=== PATIENT | male | born 1930 | race Caucasian/White ===

== ENCOUNTER → 2016-07-18 | Outpatient (CLI) | payer MEDICARE ==
[~2016-07-18] MED LIST: ACID CONTROL150 MG PO; ANORO ELLIPTA1 EACH INH; ASPIRIN LO-DOSE81 MG PO; ATIVAN 0.5MG0.5 MG PO; ATROVENT I0.5 MG/2.5 INH; CALCIUM +D & M1 EACH PO; COLACE100 MG PO; COLCRYS0.6 MG PO; COREG6.25 MG PO; CYMBALTA30 MG PO; DELTASONE20 MG PO; DEXILANT60 MG PO; DIGESTIVE ADVA1 EACH PO; DOXYCYCLINE100 MG PO; FLOMAX0.4 MG PO; HUMIBID LA (MU600 MG PO; LASIX20 MG PO; MILK OF MA400 MG/5 M PO; MIRALAX PO527 GM/BOT PO; MUCINEX DM ER1 EAC1 PO; NASONEX NASAL S17 GM NOSE; NITROSTAT0.4 MG SL; NYSTATIN100000 UNI PO; ONDANSETRON ODT4 MG SL; PRINIVIL (ZESTRI5 MG PO; PROVENTIL OR V6.7 GM INH; RANEXA ER500 MG PO; SENNA8.6 MG PO; THERA-VITE W/ B1 TAB PO; TYLENOL EXTRA500 MG PO; TYLENOL PM EX-1 EACH PO; VITAMIN D-32000 UNI1 PO
== END | disposition disaster alternative care site (69) ==
LOC: GAMB 23:34
DX: R11.2 Nausea with vomiting, unspecified (principal); Z88.8 Allergy status to other drugs, medicaments and biological substances
CPT/HCPCS: A0425; A0427; J2405

== ENCOUNTER 2016-07-19 00:01 | Emergency (ER) | payer MEDICARE ==
--- NOTE | ~2016-07-19 | ER ---
PATIENT'S NAME: NICKY [facility] AGE: 86 Y [address] ROOM: [place] [address] LOCATION: [facility] ADMIT DATE: 07/19/2016 ER/Outpatient Report DISCHARGE DATE: FAMILY PHYSICIAN: Moiz Thomason MD ATTENDING PHYSICIAN: Geoffrey Solis Admission date and time documented in medical record. I saw the patient at 0010 hours. CHIEF COMPLAINT: Nausea, vomiting, incontinence of urine, intermittent confusion, lightheaded, dizziness. HISTORY OF PRESENT ILLNESS: This patient is an 86-year-old male, who became ill Friday, was seen by his personal physician yesterday which will be . Evaluated and sent home. Tonight, he comes in with nausea and vomiting intermittently, no diarrhea. Has had some intermittent urinary incontinence. He has been intermittently confused, has had intermittent low-grade fever, mild cough that is occasionally productive. No shortness of breath, chest pain, or back pain. Does have some lower abdominal pain. No chills or sweats. No fall or trauma. HOME MEDICATIONS: See attached medication list. ALLERGIES: CONTRAST DYE, TETANUS. SOCIAL HISTORY: Nonsmoker, nondrinker. SIGNIFICANT PAST MEDICAL HISTORY: Chronic pain syndrome, atherosclerotic ischemic heart disease with coronary artery disease, hypertension, COPD, compression fractures, degenerative joint disease, degenerative osteoarthritis. OPERATIONS: Total shoulder arthroplasty, bilateral total knee arthroplasty, back surgery, four-vessel coronary artery bypass graft, herniorrhaphy x3. REVIEW OF SYSTEMS: All systems reviewed by me are negative with the exception of those discussed in the history of the present illness. PHYSICAL EXAMINATION: PATIENT'S NAME: NICKY [facility] AGE: 86 Y [address] ROOM: [place] [address] LOCATION: [facility] ADMIT DATE: 07/19/2016 ER/Outpatient Report DISCHARGE DATE: FAMILY PHYSICIAN: Moiz Thomason MD ATTENDING PHYSICIAN: Geoffrey Solis VITAL SIGNS: Temperature 99.9 tympanic, pulse 98, respirations 16, blood pressure 122/72, O2 saturation on room air was 90%. HEAD: Normocephalic. No abrasion, contusion, laceration, swelling of the scalp or face. EYES: Extraocular muscles intact. CRISTOBAL. EARS, NOSE, THROAT: Clear. Mucous membranes a little dry. NECK: No nuchal rigidity. No findings of adenopathy. SPINE: Negative. LUNGS: Clear. No rales, rhonchi, or wheezes. HEART: Regular. Pulses palpable. ABDOMEN: Soft, nondistended, nontender. Good bowel tones. No organomegaly or abnormal mass palpable. No CVA tenderness. EXTREMITIES: Without peripheral edema, cyanosis, or deformity. NEURO: Cranial nerves intact. No lateralizing sign. The patient is awake, cooperative. Motor and sensory intact. The patient is oriented. Answers questions appropriately. Conversation is appropriate. SKIN: Clear. No skin eruptions or rash. LABORATORY DATA AND X-RAYS: EKG showed no acute ST elevation, ischemic change, or arrhythmia. Had some old inferior changes. Chest x-ray showed no acute infiltrate or changes. We will review x-ray with the radiologist. LABORATORY DATA: White count of 7500, 64 segs, 16 lymphs, 16 monos, 4 eos, 1 baso. Hemoglobin is 12.1, hematocrit 37.3, platelet count was 173,000. Sedimentation rate was 44. Pro-time is 10.2 with an INR of 1.0. Procalcitonin was less than 0.05. Urine showed 0-2 whites, negative reds, 0-2 epithelial cells, negative bacteria per high-powered field, negative nitrites on dipstick. Culture: Pending. Did do 2 blood cultures; results pending. Lactate was 1.6. CMS was normal, except for an elevated glucose of 128, elevated creatinine of 1.4, low GFR of 48. Amylase and lipase were normal. CPK was 34. [id number] cardiac enzymes were normal. CRP was 0.96, proBNP was 208. Did give the patient 1 liter of normal saline IV in the emergency room and Zofran 4 mg IV in the emergency room. IMPRESSION: Viral illness with nausea, vomiting, and intermittent incontinence of urine. Intermittent confusion. Intermittent dizziness. PLAN: Hydrate the patient. Dismissed the patient home. Observation. Activity: As tolerated. Continue present home medications and care. Clear liquid diet for 24 hours and advance diet as tolerated. The patient is to follow up with his PATIENT'S NAME: CHATA SAUNDERS [facility] AGE: 86 Y [address] ROOM: [place], [place] [address] LOCATION: [facility] ADMIT DATE: 07/19/2016 ER/Outpatient Report DISCHARGE DATE: FAMILY PHYSICIAN: Moiz Thomason MD ATTENDING PHYSICIAN: Geoffrey Solis personal physician tomorrow as scheduled. Discussion ensued with the patient and his daughter in regard to my findings and recommendations, they understand. Did send home a script for Zofran ODT 1 sublingual every 4 to 6 hours as needed for nausea and vomiting. MD GRACE PARNELL/modl /[id number] d: 07/19/16 0334 t: 07/19/16 181, OUTPATIENT REPORT
[2016-07-19 00:31] LABS: BILIRUBIN URINE NEGATIVE (NEGATIVE); BLOOD URINE NEGATIVE /UL (NEGATIVE); GLUCOSE URINE NEGATIVE (NEGATIVE); KETONE URINE 5 mg/dL (NEGATIVE); LEUKOCYTES URINE 25 /UL (NEGATIVE); NITRITE URINE NEGATIVE (NEGATIVE); PROTEIN URINE 15 mg/dL (NEGATIVE); UROBILINOGEN URINE NORMAL (NORMAL)
[2016-07-19 00:32] LABS: COLOR URINE YELLOW (YELLOW); TURBIDITY URINE CLEAR (CLEAR)
[2016-07-19 00:39] LABS: BASOPHIL # 0.1 K/uL (0.0-0.2); BASOPHIL % 0.7 %; EOSINOPHIL # 0.3 K/uL (0.0-0.5); HEMATOCRIT 37.3 % (33.0-50.0); HEMOGLOBIN 12.1 g/dL (11.0-16.0); IMMATURE GRANULOCYTE % 0.5 %; LYMPHOCYTE # 1.2 K/uL (0.8-4.0); LYMPHOCYTE % 15.5 %; MCH 31.6 pg (27.0-34.0); MCHC 32.4 gm/dL (32.0-36.5); MCV 97.4 fl (83.0-98.0); MONOCYTE # 1.2 K/uL (0.0-1.0); MONOCYTE % 15.8 %; MPV 9.3 fl (9.4-12.4); NEUTROPHIL # (ANC) 4.8 K/uL (1.4-9.0); NEUTROPHIL % 63.5 %; NRBC % 0 /100WBC (0-0.00); PLATELET COUNT 173 K/uL (150-450); RBC 3.83 M/uL (3.50-5.50); RDW-CV 14.3 % (11.9-14.6); WBC 7.5 K/uL (4.0-11.0)
[2016-07-19 00:42] LABS: BACTERIA URINE NEGATIVE (NEGATIVE); EPITHELIAL URINE 0-2 #/HPF (NEGATIVE); RBC URINE NEGATIVE #/HPF (NEGATIVE); WBC URINE 0-2 #/HPF (NEGATIVE)
[2016-07-19 00:48] LABS: PROTIME 10.2 SECONDS (9.6-11.1)
[2016-07-19 00:58] LABS: ALBUMIN 3.3 gm/dL (3.5-5.0); ALK PHOS 79 IU/L (33-138); ALT 19 IU/L (12-78); ANION GAP 13.9 (10.0-19.0); AST 16 IU/L (10-40); BLOOD UREA NITROGEN 21 mg/dL (6-24); CALCIUM 9.1 mg/dL (8.5-10.5); CHLORIDE 107 mMol/L (96-110); CO2 25 mMol/L (22-32); CPK 34 IU/L (35-332); CREATININE 1.4 mg/dL (0.6-1.3); ESTIMATED GFR (MDRD EQUATION) 48; POTASSIUM 3.9 mMol/L (3.7-5.1); SODIUM 142 mMol/L (135-145); TOTAL BILIRUBIN 0.3 mg/dL (0.0-1.5); TOTAL PROTEIN 6.9 g/dL (6.0-8.4)
== END 2016-07-19 02:12 | disposition disaster alternative care site (69) ==
LOC: GMED 00:01
PROVIDERS: Emergency Medicine
PROC: 0T9B70Z Drainage of Bladder with Drainage Device, Via Natural or Artificial Opening (ICD-10-PCS; principal; 2016-07-19)
DX: B34.9 Viral infection, unspecified (principal); R32 Unspecified urinary incontinence; R42 Dizziness and giddiness; R41.0 Disorientation, unspecified
CPT/HCPCS: J2405; J7030

== ENCOUNTER 2016-07-23 14:12 | Inpatient (IN) | payer MEDICARE ==
[~2016-07-23] VITALS: Ht 170.2 cm; Wt 80.7 kg
--- NOTE | ~2016-07-23 | ER ---
PATIENT'S NAME: NICKY [facility] AGE: 86 Y [address] ROOM: [place] [address] LOCATION: [facility] ADMIT DATE: 07/23/2016 ER/Outpatient Report DISCHARGE DATE: FAMILY PHYSICIAN: LION GALINDO MD ATTENDING PHYSICIAN: SILVANO BRITT V Time of Arrival: 1412. Time Seen: 1414. IDENTIFICATION: 86-year-old male. CHIEF COMPLAINT: Probable pneumonia. HISTORY OF PRESENT ILLNESS: The patient has been short of breath and seen in the clinic a couple of different times, treated with prednisone and antibiotics, seem to get a little bit better, but then got worse according to his daughter. His has been in the hospital here. He sees Dr. Yu, normally. He has had "chills" and felt clammy and nonproductive cough. He also has been seen here in the emergency room. PAST MEDICAL HISTORY: ALLERGIES: TO TETANUS AND CONTRAST. CURRENT MEDICATIONS: 1. Calcium chews 500 mg with vitamin D and K. 2. 6 mg. 3. Dexilant 60 mg. 4. Carvedilol 6.125 mg b.i.d. 5. Lisinopril 5 mg daily. 6. Ranexa 500 mg b.i.d. 7. Men's multivitamin daily. 8. Vitamin D 2000 international units daily. 9. TruBiotics daily. 10. Acetaminophen daily. 11. MiraLAX 1 daily. 12. Ranitidine 150 mg at bedtime. 13. Flomax 0.4 mg at bedtime. 14. Duloxetine 30 mg daily. 15. Aspirin 81 mg daily. 16. Stool softener 100 mg daily. PATIENT'S NAME: NICKY [facility] AGE: 86 Y [address] ROOM: [place] [address] LOCATION: [facility] ADMIT DATE: 07/23/2016 ER/Outpatient Report DISCHARGE DATE: FAMILY PHYSICIAN: LION GALINDO MD ATTENDING PHYSICIAN: SILVANO BRITT V 17. Tylenol PM two 500 mg tablets at bedtime. 18. Mometasone 50 mcg spray. 19. Mucinex DM. 20. Clindamycin. 21. Prednisone were prescribed in the clinic this week according to his daughter. MEDICAL PROBLEMS: COPD, urinary retention, constipation, coronary artery disease, chronic pain syndrome, compression fracture, degenerative joint disease, degenerative arthritis. PRIOR SURGERY: Total shoulder arthroplasty, bilateral total knee arthroplasty, back surgery, four-vessel CABG, herniorrhaphy x3. SOCIAL HISTORY: The patient lives at home normally with his and daughter. REVIEW OF SYSTEMS: All systems reviewed and negative other than what is noted in the HPI. PHYSICAL EXAMINATION: VITAL SIGNS: Pulse 69, respirations 20, temperature 96.6, blood pressure 151/80, sats initially 92% on room air, but did drop to 87% requiring O2 at 3 L per nasal cannula to maintain saturations greater than 90%. GENERAL: An 86-year-old male in no acute distress. HEENT: Head: Normocephalic, atraumatic. Ears: TMs translucent to both ears. Nose: Mucosa pink, no lesions. Mouth: No lesions. Pharynx benign. NECK: Supple. No lymphadenopathy. LUNGS: Diminished in the bases. HEART: Regular rate and rhythm. ABDOMEN: Soft, nondistended, nontender. SKIN: [place], warm, and dry. No lesions or rashes noted. NEUROLOGIC: No palpable masses. SKIN: [place], warm, and dry. No lesions or rashes noted. EXTREMITIES: Trace of edema. No calf tenderness. DIAGNOSTIC DATA: Two-view chest x-ray; suboptimal inspiration, cannot exclude increased pulmonary vascularity or infiltrate. Two-view abdomen; moderate amount of stool, but no free air, no evidence of obstruction. V/Q scan pending. LABORATORY DATA: Sodium 141, potassium 4.5, chloride 104, CO2 of 29, BUN 31, creatinine PATIENT'S NAME: CHATA SAUNDERS [facility] AGE: 86 Y [address] ROOM: [place] [address] LOCATION: [facility] ADMIT DATE: 07/23/2016 ER/Outpatient Report DISCHARGE DATE: FAMILY PHYSICIAN: LION GALINDO MD ATTENDING PHYSICIAN: SILVANO BRITT V elevated at 1.5 but is stable, blood sugar 128, liver enzymes normal. GFR 44, magnesium 2.9, CPK 26, CK-MB less than 0.5. Troponin I less than 0.040. Lactate elevated at 2.3. Procalcitonin less than 0.05. UA; 0-2 white cells, 0-2 red cells, 2-5 epithelial cells. Urine culture and sensitivity are pending. Hemoglobin 12.1, hematocrit 38.2, platelets 204, white count 10.3, normal differential. D-dimer elevated at 1.09. INR 1.0 and again V/Q scan is pending. ProBNP 328. EKG; sinus rhythm at 71 beats per minute. No acute ST elevation. Nonspecific ST-T wave changes. No significant change when compared to prior EKG 07/09/2013. IMPRESSION: 1. Possible pneumonia. 2. Chronic obstructive pulmonary disease exacerbation. PLAN: Levaquin 500 mg p.o. daily. Solu-Medrol IV q.8 hours. DuoNeb q.6 hours. O2 per nasal cannula to maintain saturations greater than 90%. V/Q scan pending. The patient is a DNR and Dr. Britt evaluated the patient in the emergency room. Please refer to his H and P as well. CHERYL RONQUILLO MD CAR/modl /[id number] d: 07/23/16 2309 t: 07/30/16 1412, OUTPATIENT REPORT
--- NOTE | ~2016-07-23 | HP ---
PATIENT'S NAME: CHATA SAUNDERS [facility] AGE: 86 Y [address] ROOM: [place] [id number] LOCATION: [facility]U ADMIT DATE: 07/23/2016 History & Physical DISCHARGE DATE: FAMILY PHYSICIAN: LION GALINDO MD ATTENDING PHYSICIAN: SILVANO BRITT V DATE OF SERVICE: CHIEF COMPLAINT: As provided by the caregivers is increased shortness of breath, saturations in high 80s at home, and decreased appetite. HISTORY OF PRESENT ILLNESS: The patient is an 86-year-old male with past medical history further detailed below, most significant for a very recent diagnosis of COPD at an outside facility. He has been experiencing increased dyspnea as well as decreased oral intake and generalized lack of energy at home. He was treated by his PMD with clindamycin and oral prednisone. He did not significantly improve, and daughter, who is the caregiver, felt that the patient was declining recently with decreased energy level, lower saturations than normal, and decreased oral intake. The patient himself does not volunteer any significant complaints including none of chest pain. In the ER, the patient was found to be very mildly hypoxic but aside from that, he also had some elevated creatinine from his baseline. Of note, his is also in the hospital with a complex medical condition, which details I do not have, but the daughter feels that the fact that she is taken to the hospital probably is contributing to his symptoms. REVIEW OF SYSTEMS: All systems have been reviewed and are negative aside from pertinent positives mentioned above. PAST MEDICAL HISTORY: As gathered from the daughter is that of: 1. Coronary artery disease, status post CABG. 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 2. Questionable benign prostatic hyperplasia. 3. Mild dementia. 4. COPD. 5. History of a compression spinal fracture. CURRENT MEDICATIONS: PATIENT'S NAME: CHATA SAUNDERS [facility] AGE: 86 Y [address] ROOM: [place] [address] LOCATION: [facility]U ADMIT DATE: 07/23/2016 History & Physical DISCHARGE DATE: FAMILY PHYSICIAN: LION GALINDO MD ATTENDING PHYSICIAN: SILVANO BRITT V 1. Calcium. 2. Colcrys. 3. Dexilant. 4. Coreg. 5. Lisinopril. 6. Ranexa. 7. Vitamins. 8. Vitamin D. 9. Probiotics. 10. Acetaminophen as needed. 11. MiraLAX. 12. Ranitidine. 13. Flomax. 14. Duloxetine. 15. Aspirin. 16. Stool softeners. 17. Tylenol. 18. Mometasone. 19. Mucinex. 20. hydrocodone/APAP as needed. FAMILY HISTORY: Reviewed and noncontributory due to known advanced age and known underlying medical problems. SOCIAL HISTORY: Significant for no history of tobacco exposure, but history of inhaling some sort of acid, which is felt to be the underlying cause for his COPD. PHYSICAL EXAMINATION: VITAL SIGNS: Blood pressure 151/80, temperature 96.6, saturating 92% on 2 L nasal cannula, pulse is 69. GENERAL: Appears as a chronically ill, elderly male, in no acute distress. NEUROLOGIC: Nonfocal. EYE: Shows sunken eyes with extraocular muscles intact. ENT: Reveals crowding of the airway but no pharyngeal erythema or edema. There is no stridor. LYMPHATIC: Shows no cervical lymphadenopathy. LUNGS: Exam is significant for significant crackles as well as expiratory wheezes in the upper airways. HEART: Reveals regular rate and rhythm without appreciable murmurs, gallops, or rubs. GI: Abdomen is soft, nontender, nondistended. : No costovertebral angle tenderness. VASCULAR: 2+ pedal pulses. No cyanosis, clubbing, or edema. PATIENT'S NAME: CHATA SAUNDERS [facility] AGE: 86 Y [address] ROOM: [id number] [place] [id number] [facility]: [facility] ADMIT DATE: 07/23/2016 History & Physical DISCHARGE DATE: FAMILY PHYSICIAN: LION GALINDO MD ATTENDING PHYSICIAN: SILVANO BRITT V MUSCULOSKELETAL: Exam is unremarkable. SKIN: Warm and dry. PSYCHIATRIC: Reveals slightly diminished cognition, but preserved affect and depressed mood. LABORATORY RESULTS: Significant for an unremarkable UA, negative procalcitonin, slightly elevated D-dimer, unremarkable CBC, a negative set of cardiac enzymes. Creatinine of 1.5, BUN of 31, slightly above his baseline, and a lactate of 2.3. EKG shows sinus rhythm with low voltage. IMAGING STUDIES: Chest x-ray reveals crowding of the lung markings with poor inspiratory effort and questionable infiltrate in the left base. Plain films of the abdomen reveals likely constipation. ASSESSMENT AND PLAN: This is an 86-year-old male, who will be admitted with: 1. Failure to thrive. We will hydrate the patient and provide him with physical/occupational therapy. 2. Acute hypoxic respiratory failure. Given the findings on his chest x- ray, I think it is worthwhile to do a high-resolution noncontrast CAT scan of his lungs to see if he has an underlying lung process. We will also treat him for chronic obstructive pulmonary disease exacerbation/community-acquired pneumonia with Levaquin, nebulizers, and gentle doses of steroids. We will add a probiotic. 3. Constipation. We will treat his constipation with a bowel regimen. 4. Coronary artery disease. Continue on his current regimen. 5. Hypoxic respiratory failure. A V/Q scan has been ordered. 6. Goals of care. I did discuss his advance directives with the patient and daughter, they agreed that he should be DNR given advanced age and accumulating medical problems, though I did not discuss intubation at this point. Additional management depend on clinical course. Time dedicated to the patient's encounter is 35 minutes. MD KIERA AGOSTO/doris /[id number] D: T: [id number] HISTORY & PHYSICAL
--- NOTE | ~2016-07-23 | DS ---
PATIENT'S NAME: CHATA SAUNDERS [facility] AGE: 86 Y [address] ROOM: [place] [address] LOCATION: GPCU ADMIT DATE: 07/23/2016 Discharge Summary DISCHARGE DATE: 07/26/2016 FAMILY PHYSICIAN: Moiz Thomason MD ATTENDING PHYSICIAN: Theodore Landaverde V PRIMARY DIAGNOSES: 1. Acute on chronic hypoxic respiratory failure. 2. Chronic bronchitis. 3. Chronic obstructive pulmonary disease with exacerbation. 4. Adult failure to thrive. 5. Gait instability with frequent falls. 6. Chronic low back pain. 7. Osteoarthritis of the spine. 8. Constipation. 9. Dementia without agitation. 10. Coronary artery disease. 11. Benign prostatic hypertrophy. OPERATIONS OR PROCEDURES: V/Q scan, CT scan of the chest were obtained on 07/23/2016, negative for PE demonstrating findings consistent with chronic bronchitis. HISTORY OF PRESENTING ILLNESS AND REASON FOR ADMISSION: Please refer to the H and P dictated on 07/23/2016. HOSPITAL COURSE: The patient was admitted to the hospital as noted above with a presumptive diagnosis of acute hypoxic respiratory failure. There was some concern for PE, but imaging studies ruled this out. CT scan did confirm the presence of chronic lung findings including evidence for chronic bronchitis and chronic obstructive pulmonary disease. He received broad-spectrum antibiotic therapy and careful IV steroid management. His clinical condition was stable. He was slow to improve. He was felt to be chronically deconditioned and adult failure to thrive due to multifactorial etiologies were identified. He was found to have a green hairy tongue. It was thought this was probably related to chronic inhaler therapy with Anoro, antacid therapy with Zantac, and periodic antibiotic treatment. He was recommended to use Peridex rinse for this at least initially. He really was not that symptomatic with it. He did receive physical therapy, occupational therapy. Oxygen was weaned, but PATIENT'S NAME: CHATA SAUNDERS [facility] AGE: 86 Y [address] ROOM: [place] [address] LOCATION: GPCU ADMIT DATE: 07/23/2016 Discharge Summary DISCHARGE DATE: 07/26/2016 FAMILY PHYSICIAN: Moiz Thomason MD ATTENDING PHYSICIAN: Theodore Landaverde V he was not able to be weaned off. Eventually, after I had discussion with the family, it was decided to look for fdc care. We were able to find placement for him on the transitional care unit where he could continue to receive physical therapy, occupational therapy, as well as ongoing antibiotic therapy and titration of the respiratory treatments. DISCHARGE INSTRUCTIONS: Diet as tolerated. Activity as tolerated. Oxygen 1 liter per nasal cannula continuously. MEDICATIONS: 1. Acetaminophen 500 mg p.o. q.h.s. 2. Benadryl 25 mg p.o. q.h.s. 3. Acetaminophen 1000 mg p.o. q.a.m. 4. Aspirin 81 mg p.o. daily. 5. Calcium with vitamin D 500 mg p.o. daily. 6. Carvedilol 6.25 p.o. b.i.d. 7. Peridex rinse 10-15 mL p.o. q.i.d. p.r.n. 8. Vitamin D 2000 units p.o. daily. 9. Colchicine 0.6 mg p.o. daily. 10. Colace 100 mg p.o. t.i.d. 11. Cymbalta 60 mg p.o. q.h.s. 12. Lovenox 40 mg subcu daily. 13. Flonase nasal spray 2 sprays each nostril at h.s. 14. Guaifenesin 600 mg p.o. b.i.d. 15. Lactinex 1 tablet p.o. daily. 16. Levofloxacin 500 mg p.o. daily. 17. Multivitamin daily. 18. Protonix 40 mg p.o. daily. 19. MiraLax 17 g p.o. daily. 20. Prednisone 5 mg p.o. b.i.d. x3 days, then 5 mg p.o. daily x3 days, then stop. 21. Ranexa ER 500 mg p.o. b.i.d. 22. Florastor 250 mg p.o. b.i.d. 23. Flomax 0.4 mg p.o. b.i.d. 24. Anoro Ellipta inhaler 1 puff daily. 25. Albuterol and ipratropium per nebulizer q.6 hours p.r.n. 26. Dulcolax 10 mg p.r. daily p.r.n. 27. Lorazepam 0.5 mg p.o. q.h.s. 28. Milk of magnesia 30 mL p.o. daily p.r.n. 29. Nitroglycerin p.r.n. FOLLOWUP: He will have followup on the transitional care unit by the Hospitalist Team and eventual followup with his primary care physician. CONDITION ON DISCHARGE: Fair. PATIENT'S NAME: CHATA SAUNDERS [facility] AGE: 86 Y [address] ROOM: [address] [address] LOCATION: GPCU ADMIT DATE: 07/23/2016 Discharge Summary DISCHARGE DATE: 07/26/2016 FAMILY PHYSICIAN: Moiz Thomason MD ATTENDING PHYSICIAN: Theodore Landaverde V Total time spent on discharge process 45 minutes. MD AYSE RIVER/modl /[id number] d: 07/27/16 0411 t: 08/07/16 2144, DISCHARGE SUMMARY
[2016-07-23 14:59] LABS: BASOPHIL % 0.1 %; HEMATOCRIT 38.2 % (33.0-50.0); HEMOGLOBIN 12.1 g/dL (11.0-16.0); IMMATURE GRANULOCYTE # 0.2 K/uL (0.0-0.3); IMMATURE GRANULOCYTE % 2.1 %; LYMPHOCYTE # 1.4 K/uL (0.8-4.0); LYMPHOCYTE % 13.7 %; MCH 31.4 pg (27.0-34.0); MCHC 31.7 gm/dL (32.0-36.5); MCV 99.2 fl (83.0-98.0); MONOCYTE % 9.3 %; MPV 9.9 fl (9.4-12.4); NEUTROPHIL # (ANC) 7.7 K/uL (1.4-9.0); NEUTROPHIL % 74.8 %; NRBC % 0 /100WBC (0-0.00); PLATELET COUNT 204 K/uL (150-450); RBC 3.85 M/uL (3.50-5.50); RDW-CV 14.4 % (11.9-14.6); WBC 10.3 K/uL (4.0-11.0)
[2016-07-23 15:11] LABS: PTT 25 SECONDS (25-32)
[2016-07-23 15:17] LABS: BLOOD URINE NEGATIVE /UL (NEGATIVE); GLUCOSE URINE NEGATIVE (NEGATIVE); KETONE URINE NEGATIVE (NEGATIVE); LEUKOCYTES URINE 25 /UL (NEGATIVE); NITRITE URINE NEGATIVE (NEGATIVE); PROTEIN URINE 30 mg/dL (NEGATIVE); SPEC GRAVITY URINE 1.015 (1.003-1.035); UROBILINOGEN URINE 1 mg/dL (NORMAL)
[2016-07-23 15:19] LABS: ALBUMIN 3.2 gm/dL (3.5-5.0); ALK PHOS 86 IU/L (33-138); ALT 27 IU/L (12-78); ANION GAP 12.5 (10.0-19.0); AST 23 IU/L (10-40); BLOOD UREA NITROGEN 31 mg/dL (6-24); CALCIUM 8.2 mg/dL (8.5-10.5); CHLORIDE 104 mMol/L (96-110); CO2 29 mMol/L (22-32); CPK 26 IU/L (35-332); CREATININE 1.5 mg/dL (0.6-1.3); ESTIMATED GFR (MDRD EQUATION) 44; POTASSIUM 4.5 mMol/L (3.7-5.1); SODIUM 141 mMol/L (135-145); TOTAL BILIRUBIN 0.3 mg/dL (0.0-1.5); TOTAL PROTEIN 6.8 g/dL (6.0-8.4)
[2016-07-23 15:20] LABS: MAGNESIUM 2.9 mg/dL (1.3-2.6)
[2016-07-23 15:30] LABS: COLOR URINE YELLOW (YELLOW); TURBIDITY URINE 1+ (CLEAR)
[2016-07-23 15:32] LABS: BACTERIA URINE FEW (NEGATIVE); CRYSTALS URINE TRIPLE PHOSPHATE (NEGATIVE); MUCUS URINE 1+ (NEGATIVE); RBC URINE 0-2 #/HPF (NEGATIVE); WBC URINE 0-2 #/HPF (NEGATIVE)
[2016-07-23] MEDS ORDERED: COLACE100 MG PO (18:20)
[2016-07-23] MEDS ORDERED: ASPIRIN LO-DOSE81 MG PO (18:20)
[2016-07-23] MEDS ORDERED: DOXYCYCLINE100 MG PO (18:21)
[2016-07-23] MEDS ORDERED: NASONEX NASAL S17 GM NOSE (18:21)
[2016-07-23] MEDS ORDERED: ATIVAN 0.5MG0.5 MG PO (18:22)
[2016-07-23] MEDS ORDERED: DELTASONE20 MG PO (18:23)
[2016-07-23] MEDS ORDERED: ONDANSETRON ODT4 MG SL (18:23)
[2016-07-23] MEDS ORDERED: COREG6.25 MG PO (18:24)
[2016-07-23] MEDS ORDERED: FLOMAX0.4 MG PO (18:24)
[2016-07-23] MEDS ORDERED: PRINIVIL (ZESTRI5 MG PO (18:24)
[2016-07-23] MEDS ORDERED: CYMBALTA30 MG PO (18:25)
[2016-07-23] MEDS ORDERED: RANEXA ER500 MG PO (18:25)
[2016-07-23] MEDS ORDERED: DEXILANT60 MG PO (18:25)
[2016-07-23] MEDS ORDERED: ACID CONTROL150 MG PO (18:25)
[2016-07-23] MEDS ORDERED: CALCIUM +D & M1 EACH PO (18:26)
[2016-07-23] MEDS ORDERED: NITROSTAT0.4 MG SL (18:26)
[2016-07-23] MEDS ORDERED: THERA-VITE W/ B1 TAB PO (18:27)
[2016-07-23] MEDS ORDERED: VITAMIN D-32000 UNI1 PO (18:27)
[2016-07-23] MEDS ORDERED: DIGESTIVE ADVA1 EACH PO (18:28)
[2016-07-23] MEDS ORDERED: MIRALAX PO527 GM/BOT PO (18:28)
[2016-07-23] MEDS ORDERED: TYLENOL EXTRA500 MG PO (18:28)
[2016-07-23] MEDS ORDERED: TYLENOL PM EX-1 EACH PO (18:29)
[2016-07-23] MEDS ORDERED: MILK OF MA400 MG/5 M PO (18:29)
[2016-07-23] MEDS ORDERED: ANORO ELLIPTA1 EACH INH (18:29)
[2016-07-23] MEDS ORDERED: MUCINEX DM ER1 EAC1 PO (18:30)
[2016-07-23] MEDS ORDERED: COLCRYS0.6 MG PO (18:30)
--- NOTE | 2016-07-23 18:37 | NUR ---
patient is 86 yo male admitted this evening from ER. has history of chromic inhalation injury in about 1983. used to work at [employer]. he was forced to retire at that time, due to the injury. he went to [place] for a year 3 times a week for chelation treatments which the daughter believes saved his life. IV is infusing in left wrist without erythema or edema noted at site. Education is given as documented. patient denies questions. Pneumatics are on, fall and allergy bracelets on. patient renetta well. call light is within reach. patient denies needs. is very pleasant. report is given to GARRETT Mendoza.
--- NOTE | 2016-07-23 19:07 | NUR ---
Significant Event:A/O X 2, disoriented to time. Ambulates with 1 assist is weak all over and suffers with chronic back pain, is not experiencing pain on admission. Dyspnea with talking. Remains 95% on room air at rest and desats to 89% with talking, so put back on to 1L/NC as on admission to the room. Fair appetite and needs assist to eat, teeth are chipped and rotting. Voids in urinal, needs assist to stand and has some delay. Wears incontience garment for dribbling. BM smear today. Daughter is supportive at the bedside. Follow up:Results of VQ scan, CT without contrast.
--- NOTE | 2016-07-24 03:45 | NUR ---
Significant Event: A/0X3. RESTED IN BED ALL OF SHIFT. TURNS SELF. AFEBRILE. VSS ON 1L. SCHEDULED EXTRA STRENGTH TYLENOL PM GIVEN AT HS NO C/O OF PAIN. PATIENT IS RESTING COMFORTABLY IN BED. IV TO L) FA SL. VQ SCAN CAME BACK -. VOIDED 675 MLS PER THE URINAL. NO BM THIS SHIFT. Follow up: CONTINUE [facility] PLAN OF CARE.
[2016-07-24 04:49] LABS: BICARBONATE 29.2 mmol/L (18.0-23.0); PCO2 44 mmHg (35-45); PO2 66 mmHg (80-90)
[2016-07-24 06:08] LABS: BASOPHIL % 0.1 %; HEMATOCRIT 36.7 % (33.0-50.0); HEMOGLOBIN 11.7 g/dL (11.0-16.0); IMMATURE GRANULOCYTE # 0.3 K/uL (0.0-0.3); IMMATURE GRANULOCYTE % 3.9 %; LYMPHOCYTE # 1.3 K/uL (0.8-4.0); LYMPHOCYTE % 16.3 %; MCH 31.2 pg (27.0-34.0); MCHC 31.9 gm/dL (32.0-36.5); MCV 97.9 fl (83.0-98.0); MONOCYTE # 0.6 K/uL (0.0-1.0); MONOCYTE % 7.5 %; MPV 10.2 fl (9.4-12.4); NEUTROPHIL # (ANC) 5.9 K/uL (1.4-9.0); NEUTROPHIL % 72.2 %; NRBC % 0 /100WBC (0-0.00); PLATELET COUNT 211 K/uL (150-450); RBC 3.75 M/uL (3.50-5.50); RDW-CV 14.4 % (11.9-14.6); WBC 8.2 K/uL (4.0-11.0)
[2016-07-24 06:15] LABS: ANION GAP 11.9 (10.0-19.0); BLOOD UREA NITROGEN 27 mg/dL (6-24); CALCIUM 8.2 mg/dL (8.5-10.5); CHLORIDE 103 mMol/L (96-110); CO2 28 mMol/L (22-32); CREATININE 1.1 mg/dL (0.6-1.3); PHOSPHORUS 3.1 mg/dL (2.5-4.9); POTASSIUM 4.9 mMol/L (3.7-5.1); SODIUM 138 mMol/L (135-145)
[2016-07-24 06:17] LABS: ESTIMATED GFR (MDRD EQUATION) > 60; MAGNESIUM 2.7 mg/dL (1.3-2.6)
--- NOTE | 2016-07-24 14:31 | NUR ---
Introduced self and role of care management to patient and his daughter. He lives in [place] with his and daughter Chantelle. His daughter states that he is able to do some of his own ADL's. His daughter Chantelle assists as needed. He does use a walker at home. He is currently getting PT and ST at [facility]. His daughter that is in the room asked that I call and speak with Chantelle as this is who takes care of her parents. I called and spoke with Chantelle. She inquired about changing his therapies to where someone comes to their home because it is getting to be to taxing on him to get out to all the appointments. I explained that we could do HHC. She agreed. I offered her the choice between [facility] or [facility]. She chose [facility]. I called the [place] office and faxed referral information. Vic denies any other needs at this time. Will continue to follow.
--- NOTE | 2016-07-24 14:44 | NUR ---
Significant Event: A/O, forgetful. Denies pain. Up with 1 assist and walker. Weaned to RA this afternoon, 94% on RA. Follow up: possible dismissal tomorrow.
--- NOTE | 2016-07-25 04:47 | NUR ---
Significant Event: A/0 X 3 BUT FORGETFULL AT TIMES. AMBULTES 1 ASSSIT WITH WALKER GAIT BELT. ALL VSS. WAS UNABEL TO WEEN TO ROOM AIR. 1L PUT SATS AROUND 91-92, RA DOWN 85-88. LUNGS REMAIN COARSE. 0.5 MG ATIVAN GIVEN AT 2240 FOR AGITATION. DENIED PAIN. Follow up: POSSIBLE D/C TODAY WITH HOME HEALTH.
[2016-07-25 04:49] LABS: HEMATOCRIT 36.6 % (33.0-50.0); HEMOGLOBIN 12.2 g/dL (11.0-16.0); MCH 31.7 pg (27.0-34.0); MCHC 33.3 gm/dL (32.0-36.5); MCV 95.1 fl (83.0-98.0); MPV 10.1 fl (9.4-12.4); PLATELET COUNT 223 K/uL (150-450); RBC 3.85 M/uL (3.50-5.50); RDW-CV 14.2 % (11.9-14.6); WBC 10.4 K/uL (4.0-11.0)
[2016-07-25 05:10] LABS: ALBUMIN 3.1 gm/dL (3.5-5.0); ALK PHOS 72 IU/L (33-138); ALT 26 IU/L (12-78); ANION GAP 13.4 (10.0-19.0); AST 24 IU/L (10-40); BLOOD UREA NITROGEN 28 mg/dL (6-24); CALCIUM 8.9 mg/dL (8.5-10.5); CHLORIDE 100 mMol/L (96-110); CO2 28 mMol/L (22-32); CREATININE 1.3 mg/dL (0.6-1.3); ESTIMATED GFR (MDRD EQUATION) 52; MAGNESIUM 2.3 mg/dL (1.3-2.6); POTASSIUM 4.4 mMol/L (3.7-5.1); SODIUM 137 mMol/L (135-145); TOTAL PROTEIN 6.8 g/dL (6.0-8.4)
[2016-07-25 05:20] LABS: TOTAL BILIRUBIN 0.4 mg/dL (0.0-1.5)
[2016-07-25 05:44] LABS: ABSOLUTE NEUTROPHIL CT (ANC) 7.1 K/uL (1.4-9.0); BANDED NEUTROPHIL # 2.6 K/uL (0.0-0.1); BANDED NEUTROPHILS % 25 %; LYMPHOCYTE # 2.4 K/uL (0.8-4.0); LYMPHOCYTE % 22 %; MONOCYTE # 0.7 K/uL (0.0-1.0); SEGMENTED NEUTROPHIL # 4.5 K/uL (1.4-9.0); SEGMENTED NEUTROPHIL % 43 %
--- NOTE | 2016-07-25 19:09 | NUR ---
PATIENT UP TO CHAIR AND BR W/ 1 ASSIST AND WALKER. 1L NC KEEPS SATS LOW 90'S. SBP 140-160'S.
[2016-07-26 05:06] LABS: BASOPHIL % 0.1 %; HEMATOCRIT 38.3 % (33.0-50.0); HEMOGLOBIN 12.6 g/dL (11.0-16.0); IMMATURE GRANULOCYTE # 0.4 K/uL (0.0-0.3); IMMATURE GRANULOCYTE % 3.7 %; LYMPHOCYTE # 2.1 K/uL (0.8-4.0); LYMPHOCYTE % 20.3 %; MCH 31.7 pg (27.0-34.0); MCHC 32.9 gm/dL (32.0-36.5); MCV 96.5 fl (83.0-98.0); MONOCYTE # 1.1 K/uL (0.0-1.0); MONOCYTE % 10.3 %; MPV 10.2 fl (9.4-12.4); NEUTROPHIL # (ANC) 6.7 K/uL (1.4-9.0); NEUTROPHIL % 65.6 %; NRBC % 0 /100WBC (0-0.00); PLATELET COUNT 241 K/uL (150-450); RBC 3.97 M/uL (3.50-5.50); RDW-CV 14.1 % (11.9-14.6); WBC 10.2 K/uL (4.0-11.0)
--- NOTE | 2016-07-26 05:13 | NUR ---
Significant Event: Pt A&Ox3, but is forgetful. VSS, remains on 1L nc. Ambulates x1 assist w/ gaitbelt and 4WW. Goal is try to wean patient down to RA; however, unable to wean patient off O2. LS remain coarse in bases, clear/diminished upper lobes. Patient denies pain. Patient can be incontinent of urine d/t urgency. Patient is able to use urinal with help. Follow up: Possible d/c home today with [facility]?
[2016-07-26 05:27] LABS: ALBUMIN 3.2 gm/dL (3.5-5.0); ANION GAP 14.2 (10.0-19.0); CREATININE 1.2 mg/dL (0.6-1.3); PHOSPHORUS 4.1 mg/dL (2.5-4.9); POTASSIUM 4.2 mMol/L (3.7-5.1)
--- NOTE | 2016-07-26 11:00 | NUR ---
Spoke with patient and daughter Chantelle about discharge options. Patients daughter Tram would like patient to go somewhere skilled for a short time before going home. I placed a call to Kimberly on TCU to have her look at patient for a short skilled stay. Chantelle is ok with patient going to TCU for a short stay but if cannot go to TCU she will take him home with [facility]. Will wait to hear back from Kimberly.
--- NOTE | 2016-07-26 13:28 | NUR ---
Patient A/O but very forgetful. Denies pain. Up with 1 assist and walker, impulsive at times. Good appetite. Remains on 1L/NC saturations low 90s. This morning patient stated that he saw bubbles on the wall, otherwise no other hallucinations noted. Transfer to TCU for rehab.
--- NOTE | 2016-07-26 13:40 | NUR ---
Received a call from [facility] on TCU. They can accept patient for a short skilled stay. I called and updated Rayna TUCKER who will have Dr Bassett complete orders. I called and updated daughter Chantelle. Patient will be transferred to TCU before 1500.
== END 2016-07-26 14:52 | DRG 189 ==
LOC: GMED 14:12 → GPCU 16:10
PROVIDERS: Family Medicine; ADMIT Internal Medicine
DX: J96.21 Acute and chronic respiratory failure with hypoxia (principal); J44.1 Chronic obstructive pulmonary disease with (acute) exacerbation; F03.90 Unspecified dementia, unspecified severity, without behavioral disturbance, psychotic disturbance, mood disturbance, and anxiety; J44.9 Chronic obstructive pulmonary disease, unspecified; R62.7 Adult failure to thrive; K59.00 Constipation, unspecified; I25.10 Atherosclerotic heart disease of native coronary artery without angina pectoris; Z66 Do not resuscitate; Z79.82 Long term (current) use of aspirin; N40.0 Benign prostatic hyperplasia without lower urinary tract symptoms; R26.9 Unspecified abnormalities of gait and mobility; R44.1 Visual hallucinations; Z91.81 History of falling; G89.29 Other chronic pain; M54.5 Low back pain; M47.9 Spondylosis, unspecified
CPT/HCPCS: A9539; A9540; J1650; J2920; J7030

== ENCOUNTER 2016-07-26 15:03 | Inpatient (IN) | payer MEDICARE ==
[~2016-07-26] VITALS: Ht 170.2 cm; Wt 81.1 kg
--- NOTE | ~2016-07-26 | DS ---
PATIENT'S NAME: CHATA SAUNDERS [facility] AGE: 86 Y [address] ROOM: [id number] [place], [place] [address] LOCATION: [facility] ADMIT DATE: 07/26/2016 Discharge Summary DISCHARGE DATE: 08/06/2016 FAMILY PHYSICIAN: Moiz Thomason MD ATTENDING PHYSICIAN: Theodore Landaverde V DISCHARGE DIAGNOSES: 1. Chronic obstructive lung disease exacerbation. 2. Oral thrush. 3. Dry mouth. 4. Essential hypertension. 5. Benign prostatic hypertrophy. 6. Dysphagia. 7. History of coronary artery disease. 8. Mild dementia. TCU COURSE: Please refer to discharge summary from the acute care site as dictated by Dr. Bassett. Briefly, the patient was admitted to TCU with hypoxia, acute on chronic hypoxic respiratory failure, and COPD exacerbation. He had been started on Levaquin at 500 mg p.o. daily and this was discontinued on 08/01/2015. He was given a prednisone taper, which he has finished. He was noted to have some crackles in his lungs and continued oxygen. He was started on Lasix. This did improve. We were able to wean him off oxygen. We did continue his Lasix at 20 mg p.o. daily. It was noted that he had difficulty swallowing pills, Speech Therapy followed him, MBS was performed. He did show penetration in aspiration on thin liquids. He was started on nectar-thick liquids with chin tuck and pills in applesauce as well as mechanical soft diet. Physical Therapy, Occupational Therapy and Speech Therapy did follow him along for restorative cares throughout his stay. He was noted to have some oral thrush. He was given nystatin swish and spit for 2 weeks. The patient continued to improve. He was no longer on oxygen. His vital signs were stable. He was practicing good pulmonary hygiene with his incentive spirometer and flutter valve. He was continued on DuoNeb, which we will continue at home. His dementia was stable. On 08/06/2016, the patient was stable. His vital signs were stable. He was able to maintain O2 sats greater than 90% on room air. It was felt as though he could be discharged to home with the help of his daughter and with outpatient physical therapy and speech therapy. It was recommended that he follow up with Dr. Thomason in 3 days with CBC and renal panel at that time. They did call and leave Dr. Thomason a message prior to the patient's discharge. LABORATORY DATA: Sodium was within normal limits 139-140, potassium 4.0-4.1. Calcium 9.0, BUN 29 upon admit to TCU, did go as high as 35, prior to discharge 23. Creatinine 1.2-1.4 , phos 4.1, GFR 48-57. Prealbumin 48. WBCs 10.2-12.9, hemoglobin 12.0-12.6, hematocrit PATIENT'S NAME: CHATA SAUNDERS [facility] AGE: 86 Y [address] ROOM: [place] [address] LOCATION: [facility] ADMIT DATE: 07/26/2016 Discharge Summary DISCHARGE DATE: 08/06/2016 FAMILY PHYSICIAN: Moiz Thomason MD ATTENDING PHYSICIAN: Theodore Landaverde V 37.7-38.9, platelets 198. Chest x-ray done 07/30/2016 showed cardiac silhouette was within normal limits. Stable prominence of central pulmonary vessels. Vascular congestion was not excluded. No focal infiltrate, pleural effusion, or pneumothorax. Modified barium swallow. Aspiration upon swallowing thin liquid barium, laryngeal penetration with no aspiration with nectar consistency. The patient was able to swallow honey, applesauce, pudding, crackers, and mixed fruit with no aspiration or penetration. DISCHARGE MEDICATIONS: 1. Tylenol 1000 mg p.o. daily each morning. 2. Aspirin 81 mg p.o. daily. 3. Calcium with D 1 tablet p.o. daily. 4. Digestive Advantage 1 tablet p.o. daily. 5. Coreg 6.25 mg p.o. twice daily. 6. Vitamin D3 2000 units p.o. daily. 7. Colchicine 0.6 mg p.o. daily. 8. Colace 100 mg p.o. 3 times a day, hold if loose stools. 9. Cymbalta 60 mg p.o. q.h.s. 10. Lasix 20 mg p.o. every morning. 11. Humibid LA 600 mg p.o. twice a day. 12. Multivitamin 1 tablet p.o. daily. 13. Nystatin swish and spit 4 times daily through 08/16/2016. 14. Ranexa ER 500 mg p.o. twice a day. 15. Flomax 0.4 mg p.o. twice daily. 16. DuoNeb one inhalation every 6 hours. 17. Anoro Ellipta 62.5-25 mcg 1 puff daily. 18. Milk of magnesia 30 mL p.o. daily. 19. Nasonex 2 sprays every night at bedtime. 20. Ativan 0.5 mg p.o. q.h.s. p.r.n. 21. Zofran 4 mg sublingual every 4 hours as needed for nausea and vomiting. 22. Dexilant 60 mg p.o. daily. 23. Ranitidine 150 mg p.o. twice daily. 24. Nitrostat 0.4 mg sublingual q.5 minutes p.r.n. chest pain. 25. Albuterol metered-dose inhaler 2 puffs q.4 hours p.r.n. shortness of breath or wheeze. 26. Senna 2 tablets p.o. daily p.r.n. constipation. 27. Script for nebulizer. DISCHARGE INSTRUCTIONS: Diet: Mullens-hick liquids, mechanical soft, chin tuck. Activities: As tolerated. Followup appointment with Dr. Thomason with CBC and BMP in 3 days. PT and Speech Therapy to follow up as an outpatient. Thank you for allowing us to participate in the care of this patient as he has been hospitalized at [facility]. PATIENT'S NAME: CHATA SAUNDERS [facility] AGE: 86 Y [address] ROOM: [place] [address] LOCATION: [facility] ADMIT DATE: 07/26/2016 Discharge Summary DISCHARGE DATE: 08/06/2016 FAMILY PHYSICIAN: Moiz Thomason MD ATTENDING PHYSICIAN: Theodore Landaverde V SUZANNE VELEZ APRN FOR MD JOHNNY EASLEY/doris /[id number] CC: Moiz Thomason MD d: 08/07/16611 t: 08/10/16 1805, DISCHARGE SUMMARY
--- NOTE | ~2016-07-26 | DS ---
PATIENT'S NAME: CHATA SAUNDERS [facility] AGE: 86 Y [address] ROOM: [place] [address] LOCATION: [facility] ADMIT DATE: 07/23/2016 Discharge Summary DISCHARGE DATE: 07/26/2016 FAMILY PHYSICIAN: Moiz Thomason MD ATTENDING PHYSICIAN: Theodore Landaverde V PRIMARY DIAGNOSES: 1. Acute on chronic hypoxic respiratory failure. 2. Chronic bronchitis. 3. Chronic obstructive pulmonary disease with exacerbation. 4. Adult failure to thrive. 5. Gait instability with frequent falls. 6. Chronic low back pain. 7. Osteoarthritis of the spine. 8. Constipation. 9. Dementia without agitation. 10. Coronary artery disease. 11. Benign prostatic hypertrophy. OPERATIONS OR PROCEDURES: V/Q scan, CT scan of the chest were obtained on 07/23/2016, negative for PE demonstrating findings consistent with chronic bronchitis. HISTORY OF PRESENTING ILLNESS AND REASON FOR ADMISSION: Please refer to the H and P dictated on 07/23/2016. HOSPITAL COURSE: The patient was admitted to the hospital as noted above with a presumptive diagnosis of acute hypoxic respiratory failure. There was some concern for PE, but imaging studies ruled this out. CT scan did confirm the presence of chronic lung findings including evidence for chronic bronchitis and chronic obstructive pulmonary disease. He received broad-spectrum antibiotic therapy and careful IV steroid management. His clinical condition was stable. He was slow to improve. He was felt to be chronically deconditioned and adult failure to thrive due to multifactorial etiologies were identified. He was found to have a green hairy tongue. It was thought this was probably related to chronic inhaler therapy with Anoro, antacid therapy with Zantac, and periodic antibiotic treatment. He was recommended to use Peridex rinse for this at least initially. He really was not that symptomatic with it. He did receive physical therapy, occupational therapy. Oxygen was weaned, but PATIENT'S NAME: CHATA SAUNDERS [facility] AGE: 86 Y [address] ROOM: [place] [address] LOCATION: [facility] ADMIT DATE: 07/23/2016 Discharge Summary DISCHARGE DATE: 07/26/2016 FAMILY PHYSICIAN: Moiz Thomason MD ATTENDING PHYSICIAN: Theodore Landaverde V he was not able to be weaned off. Eventually, after I had discussion with the family, it was decided to look for fdc care. We were able to find placement for him on the transitional care unit where he could continue to receive physical therapy, occupational therapy, as well as ongoing antibiotic therapy and titration of the respiratory treatments. DISCHARGE INSTRUCTIONS: Diet as tolerated. Activity as tolerated. Oxygen 1 liter per nasal cannula continuously. MEDICATIONS: 1. Acetaminophen 500 mg p.o. q.h.s. 2. Benadryl 25 mg p.o. q.h.s. 3. Acetaminophen 1000 mg p.o. q.a.m. 4. Aspirin 81 mg p.o. daily. 5. Calcium with vitamin D 500 mg p.o. daily. 6. Carvedilol 6.25 p.o. b.i.d. 7. Peridex rinse 10-15 mL p.o. q.i.d. p.r.n. 8. Vitamin D 2000 units p.o. daily. 9. Colchicine 0.6 mg p.o. daily. 10. Colace 100 mg p.o. t.i.d. 11. Cymbalta 60 mg p.o. q.h.s. 12. Lovenox 40 mg subcu daily. 13. Flonase nasal spray 2 sprays each nostril at h.s. 14. Guaifenesin 600 mg p.o. b.i.d. 15. Lactinex 1 tablet p.o. daily. 16. Levofloxacin 500 mg p.o. daily. 17. Multivitamin daily. 18. Protonix 40 mg p.o. daily. 19. MiraLax 17 g p.o. daily. 20. Prednisone 5 mg p.o. b.i.d. x3 days, then 5 mg p.o. daily x3 days, then stop. 21. Ranexa ER 500 mg p.o. b.i.d. 22. Florastor 250 mg p.o. b.i.d. 23. Flomax 0.4 mg p.o. b.i.d. 24. Anoro Ellipta inhaler 1 puff daily. 25. Albuterol and ipratropium per nebulizer q.6 hours p.r.n. 26. Dulcolax 10 mg p.r. daily p.r.n. 27. Lorazepam 0.5 mg p.o. q.h.s. 28. Milk of magnesia 30 mL p.o. daily p.r.n. 29. Nitroglycerin p.r.n. FOLLOWUP: He will have followup on the transitional care unit by the Hospitalist Team and eventual followup with his primary care physician. CONDITION ON DISCHARGE: Fair. PATIENT'S NAME: CHATA SAUNDERS [facility] AGE: 86 Y [address] ROOM: [address] [address] LOCATION: [facility] ADMIT DATE: 07/23/2016 Discharge Summary DISCHARGE DATE: 07/26/2016 FAMILY PHYSICIAN: Moiz Thomason MD ATTENDING PHYSICIAN: Theodore Landaverde V Total time spent on discharge process 45 minutes. MD AYSE RIVER/modl /[id number] d: 07/27/16 0411 t: 08/09/16 1344, DISCHARGE SUMMARY
--- NOTE | ~2016-07-26 | DS ---
PATIENT'S NAME: CHATA SAUNDERS [facility] AGE: 86 Y [address] ROOM: [place] [address] LOCATION: [facility] ADMIT DATE: 07/23/2016 Discharge Summary DISCHARGE DATE: 07/26/2016 FAMILY PHYSICIAN: Moiz Thomason MD ATTENDING PHYSICIAN: Theodore Landaverde V PRIMARY DIAGNOSES: 1. Acute on chronic hypoxic respiratory failure. 2. Chronic bronchitis. 3. Chronic obstructive pulmonary disease with exacerbation. 4. Adult failure to thrive. 5. Gait instability with frequent falls. 6. Chronic low back pain. 7. Osteoarthritis of the spine. 8. Constipation. 9. Dementia without agitation. 10. Coronary artery disease. 11. Benign prostatic hypertrophy. OPERATIONS OR PROCEDURES: V/Q scan, CT scan of the chest were obtained on 07/23/2016, negative for PE demonstrating findings consistent with chronic bronchitis. HISTORY OF PRESENTING ILLNESS AND REASON FOR ADMISSION: Please refer to the H and P dictated on 07/23/2016. HOSPITAL COURSE: The patient was admitted to the hospital as noted above with a presumptive diagnosis of acute hypoxic respiratory failure. There was some concern for PE, but imaging studies ruled this out. CT scan did confirm the presence of chronic lung findings including evidence for chronic bronchitis and chronic obstructive pulmonary disease. He received broad-spectrum antibiotic therapy and careful IV steroid management. His clinical condition was stable. He was slow to improve. He was felt to be chronically deconditioned and adult failure to thrive due to multifactorial etiologies were identified. He was found to have a green hairy tongue. It was thought this was probably related to chronic inhaler therapy with Anoro, antacid therapy with Zantac, and periodic antibiotic treatment. He was recommended to use Peridex rinse for this at least initially. He really was not that symptomatic with it. He did receive physical therapy, occupational therapy. Oxygen was weaned, but PATIENT'S NAME: CHATA SAUNDERS [facility] AGE: 86 Y [address] ROOM: [place] [address] LOCATION: [facility] ADMIT DATE: 07/23/2016 Discharge Summary DISCHARGE DATE: 07/26/2016 FAMILY PHYSICIAN: Moiz Thomason MD ATTENDING PHYSICIAN: Theodore Landaverde V he was not able to be weaned off. Eventually, after I had discussion with the family, it was decided to look for halfway care. We were able to find placement for him on the transitional care unit where he could continue to receive physical therapy, occupational therapy, as well as ongoing antibiotic therapy and titration of the respiratory treatments. DISCHARGE INSTRUCTIONS: Diet as tolerated. Activity as tolerated. Oxygen 1 liter per nasal cannula continuously. MEDICATIONS: 1. Acetaminophen 500 mg p.o. q.h.s. 2. Benadryl 25 mg p.o. q.h.s. 3. Acetaminophen 1000 mg p.o. q.a.m. 4. Aspirin 81 mg p.o. daily. 5. Calcium with vitamin D 500 mg p.o. daily. 6. Carvedilol 6.25 p.o. b.i.d. 7. Peridex rinse 10-15 mL p.o. q.i.d. p.r.n. 8. Vitamin D 2000 units p.o. daily. 9. Colchicine 0.6 mg p.o. daily. 10. Colace 100 mg p.o. t.i.d. 11. Cymbalta 60 mg p.o. q.h.s. 12. Lovenox 40 mg subcu daily. 13. Flonase nasal spray 2 sprays each nostril at h.s. 14. Guaifenesin 600 mg p.o. b.i.d. 15. Lactinex 1 tablet p.o. daily. 16. Levofloxacin 500 mg p.o. daily. 17. Multivitamin daily. 18. Protonix 40 mg p.o. daily. 19. MiraLax 17 g p.o. daily. 20. Prednisone 5 mg p.o. b.i.d. x3 days, then 5 mg p.o. daily x3 days, then stop. 21. Ranexa ER 500 mg p.o. b.i.d. 22. Florastor 250 mg p.o. b.i.d. 23. Flomax 0.4 mg p.o. b.i.d. 24. Anoro Ellipta inhaler 1 puff daily. 25. Albuterol and ipratropium per nebulizer q.6 hours p.r.n. 26. Dulcolax 10 mg p.r. daily p.r.n. 27. Lorazepam 0.5 mg p.o. q.h.s. 28. Milk of magnesia 30 mL p.o. daily p.r.n. 29. Nitroglycerin p.r.n. FOLLOWUP: He will have followup on the transitional care unit by the Hospitalist Team and eventual followup with his primary care physician. CONDITION ON DISCHARGE: Fair. PATIENT'S NAME: CHATA SAUNDERS [facility] AGE: 86 Y [address] ROOM: [address] [address] LOCATION: [facility] ADMIT DATE: 07/23/2016 Discharge Summary DISCHARGE DATE: 07/26/2016 FAMILY PHYSICIAN: Moiz Thomason MD ATTENDING PHYSICIAN: Theodore Landaverde V Total time spent on discharge process 45 minutes. MD AYSE RIVER/modl /[id number] d: 07/27/16 0411 t: 08/09/16 1345, DISCHARGE SUMMARY
[~2016-07-26 15:03] MED LIST changes: -ATROVENT I0.5 MG/2.5 INH; -HUMIBID LA (MU600 MG PO; -LASIX20 MG PO; -NYSTATIN100000 UNI PO; -PROVENTIL OR V6.7 GM INH; -SENNA8.6 MG PO
--- NOTE | 2016-07-26 16:47 | NUR ---
D: Nursing ADMISSION Summary I: Nursing interventions provided to support the patient's individual plan of care R: MOBILITY-- AMBULATES WITH 1 SBA USING GAIT BELT AND WALKER NUTRITION-- REGULAR DIET GOOD INTAKE SKIN/INCISIONS/WOUNDS-- SKIN IS FRAGILE NO OPEN AREAS, SALINE LOCK IN LEFT FOREARM FLUSHES EASILY. SELF CARES-- 1 MIN ASSIST WITH ADLS BOWEL/BLADDER-- CONTINENT OF BOWEL AND BLADDER HAS DIFFICULTY STRATING STREAM AT TIMES. RESPIRATORY-- O2 ON AT 1 L/NC. LUNG SOUNDS CORSE. PAIN-- DENIES PAIN PSYCHOSOCIAL-- FAMILY ATTENTIVE TO WANTS AND NEEDS HAS PRN ATIVAN FOR ANXIETY AND TAKES CYMBALTA AT HS. COGNITION-- ALERT AND ORIENTED X3. SPECIAL NEEDS--OT/PT FOR REHABILITATION BLEEDING-- CURRENTLY RECEIVING LOVENOX FOR ANTICOAGULATION. SENSORY IMPAIRMENTS/DENTAL NEEDS: NONE TEACHING NEEDS-- HOME O2. INFECTION CONCERNS: AT RISK FOR PNEUMONIA WITH COPD HISTORY RISK FOR ELOPEMENT: NONE NEED FOR BED/MOVEMENT ALARM: AT ALL TIMES CAN BE IMPULSIVE AT TIMES DISMISSAL PLANS: TO HOME WITH HIS AND DAUGHTER WHO IS THE CAREGIVER FOR BOTH. Other: JOSIE IS IN ROOM NEXT TO PATIENT. AMBULATED TO TCU FROM PCU WITH THERAPY TODAY. PLEASAANT AND COOPERATIVE WITH CARES. P: Current plan of care reviewed and updated
--- NOTE | 2016-07-27 01:01 | NUR ---
Significant Event: was admitted yesterday. Spouse is in room 2021. Alert & oriented. Very nice man. UP with standby/1 assist/gb/walker. Steady on feet. Wears o2/1L/nc. Wears pullups. He is continent, but incontinent at x's as well. VSS. Saline lock to lt wrist. Alarms to chair/bed. Lungs clear. Denies SOB. No edema noted. On bowel regimin. Last BM the ?? Follow up: MOM for BM needed,
--- NOTE | 2016-07-27 16:42 | NUR ---
Significant Event: Pleasant, cooperative with cares. Oriented to self, does follow commands. On 1 liter o2 per NC, o2 sat 95%. Lung bases coarse with rales this afternoon; reinforced use of incent spirometer and helped pt with it. Got up to 1500 ml - needs a lot of cueing to use correctly. Up to b/r with one assist/gait belt/walker, gait is steady. Skin good, no edema. saline lock l) wrist patent, reinforced dressing. Gave MOM this afternoon for no bm since 07/23. Pt given shower with 1 assist per 's request. Visited frequently with and daughter today. Follow up:
--- NOTE | 2016-07-28 03:57 | NUR ---
Significant Event: in room 3427, likes to visit her. A/Ox3. pleasant and cooperative with cares. up with stand by assist/gb/walker. steady on feet. wears pull ups. Wears O2/nc. Continent with some episodes of incontience. Lungs had wheezes and rales. Denies SOB. Saline lock to lt wrist. still no BM. Follow up: Gave MOM 07/27/16 with no results.
--- NOTE | 2016-07-28 15:13 | NUR ---
A&O. 1PA. RESTED MOST OF SHIFT. SL TO L HAND. INC AT TIMES. ATE WELL. VD WELL. NO BM
--- NOTE | 2016-07-29 03:59 | NUR ---
Significant Event: Pt is alert, pleasant, cooperative with cares. Disoriented to time. V/S stable. Lungs crackly. O2 sat 93% on room air; ambulated in hallway and o2 sat was 88% upon return to room; respiratory therapy gave treatment. He tolerated the walk well. Voids clear yellow urine. Denies pain. L) wrist IV intact. Follow up:
--- NOTE | 2016-07-29 13:56 | NUR ---
Significant Event: AMBULATES WITH 1 SBA USING GAIT BELT AND WALKER. DENIES NEED FOR PRNS. ALERT AND ORIENTED X3 FORGETFUL AT TIMES. TAKES MEDS WHOLE WITH WATER 3 AT AT TIME. PARTICIPATED WITH THERAPIES ORDERED. PLEASANT AND COOPERATIVE WITH CARES. Follow up:
--- NOTE | 2016-07-29 15:48 | NUR ---
TCU-Social Assessment & History Marital status: Spouse name: Lu Connelyl Children/Grandchildren: daughter Chantelle lives with patient and and cares for them. Advanced Directive: DNR/DNI Living will: on file DPOA: on file Name of DPOA: Lu Connelly and Chantelle Connelly of [place], [place] Admitted from: acute care Admission date to TCU: 07-26-16 Reason for admission: continued OT/PT/RT post dx of acute on chronic hypoxic respiratory failure, adult failure to thrive, dementia no agitation, CAD, BPH, OA spine. Patient/family received resident rights upon admission: yes in admisssion packet Prior level of functioning: assistance with ADL's from daughter Chantelle Prior living situation: lives with Lu and daughter Chantelle who is their paid caregiver in [place]. Financial resources: medicare and [employer] Insurance. Resources used/available: caregiver, walker, home health care, possible need for O2 at home, outpatient therapies at [facility]. Family support available: yes Understands nature of health condition: appears to Recognizes impact of health condition on lifestyle: yes requires a short skilled stay to get stroner. also a patient on TCU with pneumonia. Occupation/Vocation/Education: retired from [employer] Behavior/Emotional needs: pleasant cooperative Legal concerns: n/a Spiritual: [employer] Discharge goal: patient desires to return home with his and daughter Activities: Patient will be encouraged to participate in "ala carte" activities offered during his short stay on TCU. A current calendar of events is posted at bedside.
--- NOTE | 2016-07-30 02:26 | NUR ---
Significant Event: Alert/Oriented, forgetful at times. One assist w/gait belt/wheeled walker. L) anterior SL flushed w/out difficulty. Refused to remove clothes he worn all day. Stated he wanted to sleep in them. Bed alarm on. Uses call light appropriately. No c/o pain. Follow up:
--- NOTE | 2016-07-30 11:34 | NUR ---
call rec'd from October with [facility]. [phone] *[phone]. She authorized 20 days with auth # [id number]. If patient still here on 08-15-16, will need to fax clinical to fax # [phone]. phone # [phone]. fabrice states he does not have O2 at home, so if not weaned off, would need to have RT set up home O2 and have a trend ox prior to d/c. nursing aware of this.
--- NOTE | 2016-07-30 15:12 | NUR ---
I have reviewed the charting and supervised the care of Eduard Roger, skilled nursing facilities professional for the shift of [id number].
--- NOTE | 2016-07-30 16:54 | NUR ---
Significant Event: Follow up: Patient swallowing several medications this am. taking 3 pills at a time with apple juice. Patient began to choke and spit up several pills still whole. Crushed medications and gave in applesauce. Speech therapy here to evaluate this afternoon, order for MBS tomorrow. Patient took medications whole this afternoon with applesauce. UP to toilet with standby assist. resting in bed this afternoon. daughter here this afternoon. patient is alert and pleasent.
--- NOTE | 2016-07-31 03:07 | NUR ---
Significant Event:Alert/Oriented. Uses call light for assistance. Transfers/Ambulates w/one assist/gait belt/walker. No c/o pain voiced. Takes meds in applesauce w/out difficulty. Follow up:Modified Barium Swallow Study in AM of 07/31/16.
[2016-07-31 06:09] LABS: BASOPHIL % 0.3 %; EOSINOPHIL # 0.2 K/uL (0.0-0.5); EOSINOPHIL % 1.3 %; HEMATOCRIT 38.9 % (33.0-50.0); HEMOGLOBIN 12.5 g/dL (11.0-16.0); IMMATURE GRANULOCYTE # 0.3 K/uL (0.0-0.3); IMMATURE GRANULOCYTE % 2.1 %; LYMPHOCYTE # 2.2 K/uL (0.8-4.0); LYMPHOCYTE % 18.6 %; MCH 31.3 pg (27.0-34.0); MCHC 32.1 gm/dL (32.0-36.5); MCV 97.5 fl (83.0-98.0); MONOCYTE # 1.3 K/uL (0.0-1.0); MONOCYTE % 11.3 %; MPV 10.1 fl (9.4-12.4); NEUTROPHIL # (ANC) 7.9 K/uL (1.4-9.0); NEUTROPHIL % 66.4 %; NRBC % 0 /100WBC (0-0.00); RBC 3.99 M/uL (3.50-5.50); RDW-CV 14.3 % (11.9-14.6); WBC 11.9 K/uL (4.0-11.0)
[2016-07-31 06:13] LABS: PLATELET COUNT 190 K/uL (150-450)
[2016-07-31 06:23] LABS: ANION GAP 13.1 (10.0-19.0); CALCIUM 9.2 mg/dL (8.5-10.5); CREATININE 1.4 mg/dL (0.6-1.3); POTASSIUM 4.1 mMol/L (3.7-5.1)
--- NOTE | 2016-07-31 12:07 | NUR ---
I have reviewed the charting and supervised the care of London Brand for the shift of 0600-noon
--- NOTE | 2016-07-31 16:30 | NUR ---
Significant Event: Alert/oriented. VSS. 1a walker/gb. MBS today, necktar thick liquids and [facility] soft diet. left wrist sl. Denies pain this shift. able to make needs known. Follow up:
--- NOTE | 2016-08-01 02:07 | NUR ---
Significant Event: A/O. Uses call light appropriatley. 1 assist with gait belt and walker. Denies any pain. Takes meds in applesauce w/out difficulty. [place] thick liquids and mech soft diet. L) wrist SL. Follow up:
--- NOTE | 2016-08-01 07:10 | NUR ---
NO CPT THIS AM-PT IN CHAIR THIS AND STATES SIDES ARE SORE FROM CPT
--- NOTE | 2016-08-01 11:35 | NUR ---
Patient was cared for by a student nurse from [id number] and supervised by Cash Carreon RN from [facility]
--- NOTE | 2016-08-01 15:26 | NUR ---
TCU Team Meeting Patient had a modified barium swallow yesterday. Nursing states that outpatient therapy orders (PT/ST) have been placed on his chart. Nursing reports RT is working with patient. OT recommends no OT outpatient therapy. PT states patient is SBA and his balance is improving. Dietary reports patient is on a mechanical soft nectar thick diet and eating well. Team recommends d/c on 08/06 to his home in [place] with outpatient PT/ST if medically alright to do so. Daughter Chantelle lives with patient and assists with ADLs as needed. Patient was updated to plan. SW will notify daughter tomorrow as she is with patient's in [place] at an appointment.
--- NOTE | 2016-08-01 17:01 | NUR ---
Significant Event: Follow up: Up with standby assist x1. up to chair for meals, up and out to therapy today. Eats mechanical soft diet, nectar thick liquids, applesauce with whole medications.
--- NOTE | 2016-08-02 02:52 | NUR ---
Significant Event: A/O. uses call light appropriatly. 1 assist with gait belt and walker. Denies any pain. takes meds with applesauce w/out difficulty. [place] thick liquids and mech soft diet. L) wrist SL. Follow up:
--- NOTE | 2016-08-02 15:22 | NUR ---
Significant Event: Follow up: Eats well today with mechanical soft and nectar thick liquids. noted bases of lungs to be coarse. no coughing. up with standby assist to toilet, ambulates in hallway with therapy. pleasent and cooperative.
--- NOTE | 2016-08-03 01:34 | NUR ---
Significant Event: Alert & oriented. He is on a mechanical soft/nectar thickened liquids diet. He has thrush in his mouth and has nystanin for his mouth. VSS. He takes his pills whole in applesauce. Crackles noted in posterior bases. up with standby assist/gb/walker. Was continent tonight, but wears pullups. Plan is home next week. Saline lock to lt wrist. Pleasant & cooperative. Follow up:
--- NOTE | 2016-08-03 14:10 | NUR ---
Significant Event:A/0 X3, PLEASANT AND COOPERATIVE, IV SALINE LOCK L)WRIST FLUSHES WELL, 1 ASSIST GB/WALKER TO BR, SLEEPY TODAY, GOOD APPETITE, DENIES PAIN, RESPIRATORY TREATMENTS, HELD AM BP MED D/T BP 101/61. NO EDEMA, WALK IN HALLWAY THIS AM. Follow up:
--- NOTE | 2016-08-04 01:24 | NUR ---
Significant Event: Alert & oriented. Spouse and daughters were up to see him again tonight. Pleasant & cooperative. Steady on feet. UP with 1 assist/gb/walker. He is on a mechanical soft diet with nectar thickened liquids and needs to be sitting straight up to eat. He takes pills whole in applesauce. VSS. Saline lock to left wrist. Thrush in mouth seems to be improving. Lungs clear in upper lobes, but continues to have crackles in posterior bases. Wears pullups and has been continent tonight. Follow up:
--- NOTE | 2016-08-04 13:58 | NUR ---
Significant Event:A/0 X3, 1 ASSIST GB/WALKER, TO CHAIR AND LAYS IN BED FOR NAP, DENIES PAIN, IV L)WRIST FLUSHES WELL, NO EDEMA, NECTAR THICK LIQUIDS WITH MECHANICAL SOFT MEALS, CONTINENT OF B/B USES CALL LIGHT APPROPRIATELY. Follow up:
--- NOTE | 2016-08-05 01:12 | NUR ---
Significant Event: Alert & oriented. Pleasant & cooperative. Steady on feet. Up with 1 assist/gb/walker. Has been continent of bowel & bladder. He has Mechanical soft foods and nectar thick fluids and is to eat sitting up with feet on the floor. LUngs clear in upper lobes but continues to have crackels in posterior bases. No edema noted. Plan is home friday. Denies pain. Receives respiratory treatments. Follow up:
[2016-08-05 05:22] LABS: BASOPHIL # 0.1 K/uL (0.0-0.2); BASOPHIL % 0.5 %; EOSINOPHIL # 0.4 K/uL (0.0-0.5); EOSINOPHIL % 2.7 %; HEMATOCRIT 37.7 % (33.0-50.0); IMMATURE GRANULOCYTE # 0.1 K/uL (0.0-0.3); IMMATURE GRANULOCYTE % 0.6 %; LYMPHOCYTE # 1.8 K/uL (0.8-4.0); LYMPHOCYTE % 13.6 %; MCH 31.2 pg (27.0-34.0); MCHC 31.8 gm/dL (32.0-36.5); MCV 97.9 fl (83.0-98.0); MONOCYTE # 1.5 K/uL (0.0-1.0); MONOCYTE % 11.8 %; MPV 10.2 fl (9.4-12.4); NEUTROPHIL # (ANC) 9.1 K/uL (1.4-9.0); NEUTROPHIL % 70.8 %; NRBC % 0 /100WBC (0-0.00); PLATELET COUNT 198 K/uL (150-450); RBC 3.85 M/uL (3.50-5.50); RDW-CV 14.4 % (11.9-14.6); WBC 12.9 K/uL (4.0-11.0)
[2016-08-05 05:32] LABS: CREATININE 1.3 mg/dL (0.6-1.3)
--- NOTE | 2016-08-05 10:07 | NUR ---
supportive visit with patient this am. he states he is ready to go home. acknowledges he understands the thickner for his beverages. patient states the green flutter valve from [facility] is helping "bring up some stuff". plan home tomorrow with outpatient ST and PT. patient and family in agreement to plan.
[2016-08-05] MEDS ORDERED: LASIX20 MG PO (14:04)
[2016-08-05] MEDS ORDERED: HUMIBID LA (MU600 MG PO (14:05)
[2016-08-05] MEDS ORDERED: NYSTATIN100000 UNI PO (14:06)
[2016-08-05] MEDS ORDERED: ATROVENT I0.5 MG/2.5 INH (14:23)
--- NOTE | 2016-08-05 14:46 | NUR ---
Significant Event: AMBULATES WITH SBA USING GAIT BELT AND WALKER. DENIES NEED FOR PRNS. SALINE LOCK TO LEFT WRIST ACCIDENTALLY DC'D BY PATIENT. LEFT OUT PATIENT IS DISCHARGING TOMORROW. TAKES MEDS 1 AT A TIME WHOLE IN APPLESAUCE. PARTICIPATED WITH THERAPIES ORDERED. PLEASANT AND COOPERATIVE WITH CARES. Follow up:
--- NOTE | 2016-08-06 03:56 | NUR ---
Significant Event: Patient is alert and oriented x 3. Up with 1 assist, walker, and gait belt. Takes meds 1 at a time, whole in applesauce. On mechanical soft diet with nectar thickened liquids. Denies any pain. Patient is pleasant and cooperative with cares. Follow up: Home today
--- NOTE | 2016-08-06 04:00 | NUR ---
D: Nursing Weekly Summary From 07/26/16 to 08/06/16 I: Nursing interventions provided to support the patient's individual plan of care R: MOBILITY-- STANDBY ASSIST WITH WALKER NUTRITION-- REGULAR DIET; MECHANICAL SOFT FOODS AND NECTAR THICK FLUIDS SKIN/INCISIONS/WOUNDS-- NONE SELF CARES-- INDEPENDENT BOWEL/BLADDER-- CONTINENT OF BOWEL AND BLADDER RESPIRATORY-- ROOM AIR. BREATHING TREATMENTS Q6HRS PAIN-- NO COMPLAINTS OF ANY PAIN PSYCHOSOCIAL-- NONE COGNITION-- ALERT AND ORIENTED X3 SPECIAL NEEDS-- NONE BLEEDING-- LOVENOX ONCE A DAY SENSORY IMPAIRMENTS/DENTAL NEEDS: NONE TEACHING NEEDS-- NONE INFECTION CONCERNS: NONE RISK FOR ELOPEMENT: NONE NEED FOR BED/MOVEMENT ALARM: NONE DISMISSAL PLANS: HOME WITH AND DAUGHTER Other: P: Current plan of care reviewed and updated
[2016-08-06] MEDS ORDERED: PROVENTIL OR V6.7 GM INH (09:46)
[2016-08-06] MEDS ORDERED: SENNA8.6 MG PO (09:47)
--- NOTE | 2016-08-06 10:27 | NUR ---
visited with Tatyana at [facility] and she is aware patient is d/c to home today with outpatient therapies. phone # [phone] *[phone]
--- NOTE | 2016-08-06 11:13 | NUR ---
Significant Event: AMBULATES WITH SBA OF 1 USING GAIT BELT AND WALKER. DENIES NEED FOR PRNS. MOUTH AND TONGUE CONTINUE TO BE COATED USES NYSTATIN SWISH AND SPIT. PARTICIPATED WITH THERAPIES ORDERED. PLANS TO DISCHARGE THIS AFTERNOON TO HOME WITH AND DAUGHTER CAREGIVER. PLEASANT AND COOPERATIVE WITH CARES. Follow up:
== END 2016-08-06 14:30 | DRG 190 ==
LOC: GSNF 15:03
PROVIDERS: Nurse Practitioner Family; ADMIT Internal Medicine
DX: J44.1 Chronic obstructive pulmonary disease with (acute) exacerbation (principal); J96.21 Acute and chronic respiratory failure with hypoxia; B37.0 Candidal stomatitis; I25.10 Atherosclerotic heart disease of native coronary artery without angina pectoris; I10 Essential (primary) hypertension; N40.0 Benign prostatic hyperplasia without lower urinary tract symptoms; F03.90 Unspecified dementia, unspecified severity, without behavioral disturbance, psychotic disturbance, mood disturbance, and anxiety; M47.9 Spondylosis, unspecified
CPT/HCPCS: J1650; J7512

== ENCOUNTER → 2016-07-31 | Outpatient (CLI) | payer MEDICARE ==
[~2016-07-31] MED LIST changes: +ATROVENT I0.5 MG/2.5 INH; +HUMIBID LA (MU600 MG PO; +LASIX20 MG PO; +NYSTATIN100000 UNI PO; +PROVENTIL OR V6.7 GM INH; +SENNA8.6 MG PO
== END | disposition disaster alternative care site (69) ==
LOC: GRAD 09:30
DX: R13.11 Dysphagia, oral phase (principal)

== ENCOUNTER 2016-09-03 15:40 | Emergency (ER) | payer MEDICARE ==
--- NOTE | ~2016-09-03 | ER ---
PATIENT'S NAME: [facility]Y [facility] AGE: 86 Y [address] ROOM: [place] [id number] LOCATION: [facility] ADMIT DATE: 09/03/2016 ER/Outpatient Report DISCHARGE DATE: 09/03/2016 FAMILY PHYSICIAN: Moiz Thomason MD ATTENDING PHYSICIAN: Geoffrey Solis Admission date and time were documented in the medical record. I saw the patient at 1610 hours. CHIEF COMPLAINT: Constipation. HISTORY OF PRESENT ILLNESS: The patient is an 86-year-old male, who comes in with constipation, not having very good stools over the past few days. He had lower abdominal cramping. No nausea or vomiting. He has had milk of magnesia with mag citrate and Dulcolax tablets. HOME MEDICATIONS: See attached medication list. ALLERGIES: TETANUS AND CONTRAST DYE. SOCIAL HISTORY: Nonsmoker and nondrinker. SIGNIFICANT PAST MEDICAL HISTORY: 1. COPD. 2. Urinary retention. 3. Constipation. 4. Atherosclerotic ischemic heart disease with coronary artery disease. 5. Chronic pain syndrome. 6. Spinal compression fractures. 7. Degenerative osteoarthritis. 8. Degenerative joint disease. OPERATIONS: 1. Herniorrhaphy x3. 2. Total shoulder arthroplasty. 3. Bilateral total knee arthroplasty. 4. Back surgery. 5. Cardiac catheterization. 6. Four-vessel coronary bypass graft. PATIENT'S NAME: NICKY [facility] AGE: 86 Y [address] ROOM: [place] [address] LOCATION: [facility] ADMIT DATE: 09/03/2016 ER/Outpatient Report DISCHARGE DATE: 09/03/2016 FAMILY PHYSICIAN: Moiz Thomason MD ATTENDING PHYSICIAN: Geoffrey Solis REVIEW OF SYSTEMS: All systems were reviewed by me and are negative with the exception of those discussed in the history of the present illness. PHYSICAL EXAMINATION: VITAL SIGNS: Temperature of 97.3 tympanic, pulse of 86, respirations of 20, blood pressure of 165/91, and O2 saturation on room air is 93%. LUNGS: Clear. HEART: Regular. ABDOMEN: Soft, nondistended, and nontender. Good bowel tones. No organomegaly or abnormal masses were palpable. DIAGNOSTIC STUDIES: KUB plain film shows marked increased amount of stool throughout the colon. I did give the patient Fleet Enema, and he totally emptied his bowels in the toilet and not in the bed. IMPRESSION: Constipation. PLAN: The patient was dismissed home. Observation. Activity as tolerated. Good fluid intake. Continue present home medications and care. Follow up with personal physician as needed. MD GRACE PARNELL/modl /[id number] d: 09/03/16 2331 t: 09/04/16 0608, OUTPATIENT REPORT
== END 2016-09-03 17:37 | disposition disaster alternative care site (69) ==
LOC: GMED 15:40
DX: K59.00 Constipation, unspecified (principal); J44.9 Chronic obstructive pulmonary disease, unspecified; I25.10 Atherosclerotic heart disease of native coronary artery without angina pectoris; Z91.041 Radiographic dye allergy status; Z88.8 Allergy status to other drugs, medicaments and biological substances; Z79.899 Other long term (current) drug therapy

== ENCOUNTER 2016-11-27 23:09 | Emergency (ER) | payer MEDICARE ==
--- NOTE | ~2016-11-27 | ER ---
PATIENT'S NAME: CHATA [facility] AGE: 86 Y [address] ROOM: [place] [address] LOCATION: [facility] ADMIT DATE: 11/27/2016 ER/Outpatient Report DISCHARGE DATE: 11/28/2016 FAMILY PHYSICIAN: Physician, Unknown ATTENDING PHYSICIAN: Evelio Steen Time Seen: 2320 hours. CHIEF COMPLAINT: This is an 86-year-old male who was previously reasonably healthy. He is in with his daughter who reports that over the past 3 days he has had decreased appetite, decreased level of activity. The patient was initially without complaint, but he did agree that his appetite has been off. He said food just did not taste good over the past few days. He has no other specific complaints. PAST MEDICAL HISTORY: Significant for COPD, coronary artery disease, hypertension, prostate hypertrophy. 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 CURRENT MEDICATIONS: See list. There have been no recent changes in his medications. SOCIAL HISTORY: He is a nonsmoker. 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 PHYSICAL EXAMINATION: GENERAL: Alert, cheerful, smiling male, in no acute distress. VITAL SIGNS: Stable. SKIN: Warm and dry. Color is normal. HEAD, EARS, EYES, NOSE, AND THROAT: Revealed tympanic membranes are normal. There is no nasal discharge. He had poor dentition. Thick black coating on his tongue and buccal mucosa. Throat is clear. NECK: Supple without adenopathy. HEART: Had a regular rate and rhythm without murmur. LUNGS: Clear. Breath sounds are equal. ABDOMEN: Soft and nontender. EXTREMITIES: Normal. NEUROLOGIC: Normal. LABORATORY DATA AND X-RAY: CBC and comprehensive metabolic profile were unremarkable. Chest x-ray was negative. Urinalysis was negative. He is given a total of 2 L IV in the emergency department. PATIENT'S NAME: CHATA SAUN[facility]ERS [facility] AGE: 86 Y [address] ROOM: [place] [address] LOCATION: [facility] ADMIT DATE: 11/27/2016 ER/Outpatient Report DISCHARGE DATE: 11/28/2016 FAMILY PHYSICIAN: Physician, Unknown ATTENDING PHYSICIAN: Evelio Steen ASSESSMENT: Generalized malaise, decreased appetite, and failure to thrive. PLAN: Encourage fluids. Follow up with his regular doctor in the next 2 to 3 days. EVELIO STEEN MD JMARÍA/modl /[id number] d: 11/28/16 2315 t: 12/03/16 0541, OUTPATIENT REPORT
[2016-11-27 23:56] LABS: BASOPHIL # 0.1 K/uL (0.0-0.2); BASOPHIL % 0.7 %; EOSINOPHIL # 0.4 K/uL (0.0-0.5); EOSINOPHIL % 3.4 %; HEMOGLOBIN 13.4 g/dL (11.0-16.0); IMMATURE GRANULOCYTE % 0.2 %; LYMPHOCYTE # 2.5 K/uL (0.8-4.0); MCH 31.5 pg (27.0-34.0); MCHC 33.5 gm/dL (32.0-36.5); MCV 93.9 fl (83.0-98.0); MONOCYTE % 9.3 %; MPV 10.2 fl (9.4-12.4); NEUTROPHIL # (ANC) 6.4 K/uL (1.4-9.0); NEUTROPHIL % 62.4 %; NRBC % 0 /100WBC (0-0.00); PLATELET COUNT 196 K/uL (150-450); RBC 4.26 M/uL (3.50-5.50); RDW-CV 13.8 % (11.9-14.6); WBC 10.2 K/uL (4.0-11.0)
[2016-11-28 00:12] LABS: ALBUMIN 3.3 gm/dL (3.5-5.0); ALK PHOS 77 IU/L (33-138); ALT 12 IU/L (12-78); ANION GAP 10.1 (10.0-19.0); AST 13 IU/L (10-40); BLOOD UREA NITROGEN 14 mg/dL (6-24); CALCIUM 8.7 mg/dL (8.5-10.5); CHLORIDE 104 mMol/L (96-110); CO2 27 mMol/L (22-32); CREATININE 1.4 mg/dL (0.6-1.3); POTASSIUM 4.1 mMol/L (3.7-5.1); SODIUM 137 mMol/L (135-145); TOTAL BILIRUBIN 0.6 mg/dL (0.0-1.5)
[2016-11-28 03:14] LABS: BILIRUBIN URINE NEGATIVE (NEGATIVE); BLOOD URINE NEGATIVE /UL (NEGATIVE); COLOR URINE YELLOW (YELLOW); GLUCOSE URINE NEGATIVE (NEGATIVE); KETONE URINE NEGATIVE (NEGATIVE); LEUKOCYTES URINE 25 /UL (NEGATIVE); NITRITE URINE NEGATIVE (NEGATIVE); PROTEIN URINE NEGATIVE (NEGATIVE); SPEC GRAVITY URINE 1.015 (1.003-1.035); TURBIDITY URINE CLEAR (CLEAR); UROBILINOGEN URINE NORMAL (NORMAL)
[2016-11-28 03:32] LABS: RBC URINE NEGATIVE #/HPF (NEGATIVE)
[2016-11-28 03:33] LABS: BACTERIA URINE NEGATIVE (NEGATIVE); EPITHELIAL URINE 0-2 #/HPF (NEGATIVE)
== END 2016-11-28 03:54 | disposition disaster alternative care site (69) ==
LOC: GMED 23:09
PROVIDERS: Emergency Medicine
PROC: 0T9B70Z Drainage of Bladder with Drainage Device, Via Natural or Artificial Opening (ICD-10-PCS; principal; 2016-11-27)
DX: R53.81 Other malaise (principal); R62.7 Adult failure to thrive; R63.0 Anorexia; I25.10 Atherosclerotic heart disease of native coronary artery without angina pectoris; I10 Essential (primary) hypertension; J44.9 Chronic obstructive pulmonary disease, unspecified; N40.0 Benign prostatic hyperplasia without lower urinary tract symptoms; Z88.7 Allergy status to serum and vaccine; Z91.041 Radiographic dye allergy status
CPT/HCPCS: J7030

== ENCOUNTER → 2016-12-03 | Outpatient (CLI) | payer MEDICARE | END | disposition disaster alternative care site (69) | LOC: GRAD 13:26 | DX: R13.19 Other dysphagia (principal) | CPT/HCPCS: G8996; G8997; G8998 ==